=== PATIENT | male | born 1980 | race Two or more races ===

== ENCOUNTER 2023-10-29 13:52 | Emergency (ER) | payer OTHER ==
[2023-10-29 14:07] VITALS: BP 154/102; PULSE 97; RESP 20; TEMP 97.6; BMI 35.2
[2023-10-29] MEDS ORDERED: LIDOCAINE 4% PATCH TP ONE (15:28)
[2023-10-29] MEDS ORDERED: ACETAMINOPHEN 500 MG TABLET (FP) ONE (15:28)
[2023-10-29] MEDS: ACETAMINOPHEN 500 MG TABLET (FP) PO ONE (15:36)
[2023-10-29] MEDS: LIDOCAINE 4% PATCH TP ONE (15:36)
[2023-10-29] MEDS ORDERED: LIDOCAINE PATCH REMOVAL MC ONE (22:00)
== END 2023-10-29 16:05 | disposition home or self-care (01) ==
LOC: JER 13:52
DX: M62.838 Other muscle spasm (principal); R10.32 Left lower quadrant pain
CPT/HCPCS: 99283-25